=== PATIENT | male | born 1980 | race Caucasian/White ===

== ENCOUNTER 2017-04-22 16:57 | Emergency (ER) | payer BC, OTHER ==
[2017-04-22 17:02] VITALS: BP 168/102; PULSE 78; RESP 18; TEMP 98.8; O2SAT 96
--- NOTE | 2017-04-22 17:25 | EDPHY ---
H & P Stated Complaint: Sore throat and R ear pain since yesterday Time Seen by Provider: 04/22/17 17:03 HPI/ROS: Chief complaint: Cold symptoms History of present illness: This is a 36-year-old male who presents to the emergency department for evaluation of cold symptoms. Patient reports the onset of symptoms over the last 1-2 days. He describes initially developing generalized malaise and body aches. He has subsequently developed a sore throat and right ear pain. Denies other associated signs or symptoms including no fevers, no cough, no trouble breathing, no rash. - Personal History Current Tetanus Diphtheria and Acellular Pertussis (TDAP): Yes Tetanus Vaccine Date: 2008 - Medical/Surgical History Hx Asthma: No Hx Chronic Respiratory Disease: No Hx Diabetes: No Hx Cardiac Disease: No Hx Renal Disease: No Hx Cirrhosis: No Hx Alcoholism: Yes Hx HIV/AIDS: No Hx Splenectomy or Spleen Trauma: No Other PMH: neck surgery. anxiety - Social History Smoking Status: Current every day smoker - Physical Exam Exam: General Appearance: Alert and no distress. Eyes: Pupils equal and round no injection. ENT: Tympanic membranes, external auditory canals, external easr and surrounding soft tissue including over the mastoids are unremarkable. Nasopharynx is not injected. There is no rhinorrhea. Oropharynx is mildly injected. There is no edema. There is no exudate. There is no asymmetry. The uvula is midline. No elevation of the tongue. There is no hoarseness, no drooling, no trismus, no stridor. Respiratory: Chest is nontender, lungs are clear to auscultation. Cardiac: regular rate and rhythm. Musculoskeletal: Neck is supple and nontender. Extremities have full range of motion and are nontender. Skin: No rashes or lesions. Neurological: Alert and oriented x4. Ambulating without difficulty. No meningismus. Constitutional: Initial Vital Signs Temperature (C) 37.1 C 04/22/17 17:00 Heart Rate 78 04/22/17 17:00 Respiratory Rate 18 04/22/17 17:00 Blood Pressure 168/102 H 04/22/17 17:00 O2 Sat (%) 96 04/22/17 17:00 O2 Delivery Mode Room Air Allergies/Adverse Reactions: amoxicillin [From Augmentin] Allergy (Mild, Verified 04/22/17 16:59) GI upset clavulanic acid [From Augmentin] Allergy (Mild, Verified 04/22/17 16:59) GI upset apple Allergy (Verified 04/22/17 16:57) tree nut [Nuts] Allergy (Verified 04/22/17 16:57) Home Medications: Medication Instructions Recorded Baclofen [Baclofen 20 mg (*)] 20 mg PO 04/22/17 DULoxetine [Cymbalta 30 MG (*)] 30 mg PO 04/22/17 GABAPENTIN 400 mg PO 04/22/17 Lisdexamfetamine Dimesylate 60 mg PO DAILY 04/22/17 [Vyvanse] Prazosin HCl [Minipress 1mg (*)] 1 mg PO HS 04/22/17 QUEtiapine FUMARATE [Seroquel 100 100 mg PO DAILY 04/22/17 mg (*)] Medical Decision Making ED Course/Re-evaluation: Patient seen under the supervision of my secondary supervising physician Dr. Colby Hayes. Patient presents to the emergency department for cold symptoms. He is nontoxic. Vital signs are stable. Strep swab is negative. Likely a viral syndrome. Patient will be discharged home. Home care is discussed. Return precautions are given. Patient voiced understanding and agreement with plan. Differential Diagnosis: Included but not limited to pharyngitis, strep pharyngitis, tonsillitis, UR infection, viral syndrome - Data Points Laboratory Results: 04/22/17 04/22/17 Unknown 17:14 Group A Strep Screen NEGATIVE (NEGATIVE) Group A Strep DNA Pending Departure - Departure Disposition: Home, Routine, Self-Care Clinical Impression: Acute pharyngitis Qualifiers: Pharyngitis/tonsillitis etiology: unspecified etiology Qualified Code(s): J02.9 - Acute pharyngitis, unspecified Condition: Good Instructions: Pharyngitis (ED) Additional Instructions: Follow-up with your primary care doctor for recheck Use [id number] cold medications as needed If symptoms worsen or new symptoms develop return to the emergency room for recheck Referrals: NONE *PRIMARY CARE P,. [Primary Care Provider] - As per Instructions [facility],. [Clinic] - As per Instructions
== END 2017-04-22 17:34 | disposition home or self-care (01) ==
DX: J02.9 Acute pharyngitis, unspecified (principal); F17.200 Nicotine dependence, unspecified, uncomplicated

== ENCOUNTER 2017-07-12 15:48 | Emergency (ER) | payer OTHER ==
[2017-07-12 16:09] VITALS: BP 161/95; PULSE 88; RESP 17; TEMP 99; O2SAT 98
--- NOTE | 2017-07-12 16:26 | EDPHY ---
H & P Stated Complaint: L EAR PAIN/URI SYMPTOMS Time Seen by Provider: 07/12/17 16:11 - Personal History Current Tetanus/Diphtheria Vaccine: Yes Tetanus Vaccine Date: 2008 - Medical/Surgical History Hx Asthma: No Hx Chronic Respiratory Disease: No Hx Diabetes: No Hx Cardiac Disease: No Hx Renal Disease: No Hx Cirrhosis: No Hx Alcoholism: Yes Hx HIV/AIDS: No Hx Splenectomy or Spleen Trauma: No Other PMH: neck surgery. anxiety - Social History Smoking Status: Current every day smoker Constitutional: Initial Vital Signs Temperature (C) 37.2 C 07/12/17 16:07 Heart Rate 88 07/12/17 16:07 Respiratory Rate 17 07/12/17 16:07 Blood Pressure 161/95 H 07/12/17 16:07 O2 Sat (%) 98 07/12/17 16:07 O2 Delivery Mode Room Air Allergies/Adverse Reactions: amoxicillin [From Augmentin] Allergy (Mild, Verified 07/12/17 16:06) GI upset clavulanic acid [From Augmentin] Allergy (Mild, Verified 07/12/17 16:06) GI upset apple Allergy (Verified 07/12/17 16:06) tree nut [Nuts] Allergy (Verified 07/12/17 16:06) Home Medications: Medication Instructions Recorded Baclofen [Baclofen 20 mg (*)] 20 mg PO 04/22/17 DULoxetine [Cymbalta 30 MG (*)] 30 mg PO 04/22/17 GABAPENTIN 400 mg PO 04/22/17 Lisdexamfetamine Dimesylate 60 mg PO DAILY 04/22/17 [Vyvanse] Prazosin HCl [Minipress 1mg (*)] 1 mg PO HS 04/22/17 QUEtiapine FUMARATE [Seroquel 100 100 mg PO DAILY 04/22/17 mg (*)] Albuterol [Proventil Inhaler] 1 - 2 puffs IH Q4 #1 mdi 07/12/17 Cephalexin [Keflex (RX)] 500 mg PO TID #30 cap 07/12/17 predniSONE 40 mg PO DAILY #10 tab 07/12/17 Medical Decision Making ED Course/Re-evaluation: CHIEF COMPLAINT: Sore throat, clot left ear, cough HISTORY OF PRESENT ILLNESS: 36-year-old gentleman with a 3 to four-day history of worsening sore throat, productive cough of brownish sputum, and a clogged left ear. Patient denies any significant fevers or chills. Patient states that someone looked in his throat and said it was red. REVIEW OF SYSTEMS: A 10 point review of systems was performed and is negative with the exception of the elements mentioned in the history of present illness. PHYSICAL EXAM: HR, BP, O2 Sat, RR. Temp noted General Appearance: Alert, well hydrated, appropriate, and non-toxic appearing. Head: Atraumatic without scalp tenderness or obvious injury Eyes: Pupils equal, round, reactive to light and accommodation, EOMI, no trauma , no injection. Ears: Clear bilaterally, no perforation, normal landmarks. Questionably some bulging of tympanic membrane on the left but no erythema Nose: Atraumatic, no rhinorrhea, clear. Turbinates are somewhat erythematous Throat: Significant erythema bilaterally with a little bit of tonsillar exudate on the right but no abscess uvula midline Neck: Supple, 2+ carotid upstroke, nontender, no lymphadenopathy. Respiratory: No retractions, no distress, no wheezes, and no accessory muscle use. Some coarse rhonchi in all acevedo Cardiovascular: Regular rate and rhythm, no murmurs, rubs, or gallops. Bilateral carotid, radial, dorsalis pedis, and posterior tibial pulses intact. Good capillary refill all extremities. Gastrointestinal: Abdomen is soft, nontender, non-distended, no masses, no rebound, no guarding, no peritoneal signs. Musculoskeletal: Normal active ROM of all extremities, atraumatic. Neurological: Alert, appropriate, and interactive. The patient has normal DTRs and non-focal cranial nerves, motor, sensory, and cerebellar exam. Skin: No rashes, good turgor, no nodules on palpation. Past medical history: Noncontributory Past surgical history: Noncontributory Family history: Noncontributory Social history: Single, employed, does not abuse tobacco drugs or alcohol DIFFERENTIAL DIAGNOSIS: The differential diagnosis for the patient's sore throat and cough included but was not limited to pneumonia, pharyngitis, viral syndrome, meningitis, and sepsis. MEDICAL DECISION MAKING: This patient does not have any significant systemic illness. He has a very erythematous throat with some exudate and no real CT are all type symptoms. I have given this patient Keflex 500 mg three times daily for 10 days also giving him some prednisone for the 1st couple of days to decreases throat swelling. I am also giving him Proventil inhaler. He is going to continue on Flonase. He will follow up with his PCP or return here if worse Departure - Departure Disposition: Home, Routine, Self-Care Clinical Impression: Acute upper respiratory infection Acute pharyngitis Qualifiers: Pharyngitis/tonsillitis etiology: unspecified etiology Qualified Code(s): J02.9 - Acute pharyngitis, unspecified Condition: Good Instructions: Pharyngitis (ED) Referrals: NONE *PRIMARY CARE P,. [Primary Care Provider] - As per Instructions Prescriptions: Albuterol [Proventil Inhaler] 1 - 2 puffs IH Q4 #1 mdi Cephalexin [Keflex (RX)] 500 mg PO TID #30 cap predniSONE 40 mg PO DAILY #10 tab
== END 2017-07-12 16:32 | disposition home or self-care (01) ==
DX: J02.9 Acute pharyngitis, unspecified (principal); J06.9 Acute upper respiratory infection, unspecified; F17.200 Nicotine dependence, unspecified, uncomplicated

== ENCOUNTER 2017-08-13 09:10 | Emergency (ER) | payer OTHER ==
[2017-08-13 09:16] VITALS: BP 156/86; PULSE 90; RESP 18; TEMP 98.1; O2SAT 96
--- NOTE | 2017-08-13 09:38 | EDPHY ---
H & P Time Seen by Provider: 08/13/17 09:19 HPI/ROS: CHIEF COMPLAINT: "My feet and hands are cracked " HISTORY OF PRESENT ILLNESS: 36-year-old immunocompetent male complaining of dry hands, feet, cracking of tissue. He works with his hands regularly, washing his hands frequently because he has been cleaning and has been applying copious amounts of liquid bandage to hands as well. He notes that his feet bilaterally are swollen. Pain-free. Lymphangitic streaking. No other rash. No intraoral lesions. No genitalia lesions. No fever or chills. No nausea or vomiting. No abdominal pain. PRIMARY CARE PROVIDER: No primary care provider REVIEW OF SYSTEMS: A ten point review of systems was performed and is negative with the exception of the items mentioned in the HPI PAST MEDICAL & SURGICAL HISTORY: No pertinent medical or surgical history SOCIAL HISTORY: daily cigarette smoker PHYSICAL EXAM (Prior to examination, patient consented to physical exam, hands were washed and my usual and customary physical exam procedures followed) 1) GENERAL: Well-developed, well-nourished, alert and oriented. Appears distress 2) HEAD: Normocephalic, atraumatic 3) HEENT: Pupils equal, round, reactive to light bilaterally. Sclera anicteric. Nasopharynx, oropharynx, clear, no lesions. No tonsillar enlargement or exudate Ears bilaterally with normal tympanic membranes. 4) NECK: Full range of motion, no meningeal signs. 5) LUNGS: Clear auscultation bilaterally, no wheezes, no rhonchi, no retractions. 6) HEART: Regular rate and rhythm, no murmur, no heave, no gallop. 7) ABDOMEN: No guarding, no rebound, no focal tenderness, 8) MUSCULOSKELETAL: Moving all extremities, no focal areas of tenderness, no obvious trauma. No peripheral edema or discoloration. 9) BACK: No CVA tenderness, no midline vertebral tenderness, no fluctuance, no step-off, no obvious trauma, no visual or palpable abnormality. 10) SKIN: The patient's bilateral hands and feet plantar and palmar aspects he has dry skin consistent with cirrhotic eczema with cracking of the tissue. No erythema or signs of cellulitis or infection. No crepitus. No vesicles. No tenderness. Negative kanavel to the hand. No lymphangitic streaking. 11) Psychiatric: Patient is oriented X 3, there is no agitation. DIFFERENTIAL DIAGNOSIS: [ in no particular order including but limited to dyshidrotic eczema, contact dermatitis, cellulitis Smoking Status: Current every day smoker Constitutional: Initial Vital Signs Temperature (C) 36.7 C 08/13/17 09:12 Heart Rate 90 08/13/17 09:12 Respiratory Rate 18 08/13/17 09:12 Blood Pressure 156/86 H 08/13/17 09:12 O2 Sat (%) 96 08/13/17 09:12 O2 Delivery Mode Room Air Allergies/Adverse Reactions: amoxicillin [From Augmentin] Allergy (Mild, Verified 08/13/17 09:12) GI upset clavulanic acid [From Augmentin] Allergy (Mild, Verified 08/13/17 09:12) GI upset apple Allergy (Verified 08/13/17 09:12) tree nut [Nuts] Allergy (Verified 08/13/17 09:12) Home Medications: Medication Instructions Recorded Baclofen [Baclofen 20 mg (*)] 20 mg PO 04/22/17 DULoxetine [Cymbalta 30 MG (*)] 30 mg PO 04/22/17 GABAPENTIN 400 mg PO 04/22/17 Lisdexamfetamine Dimesylate 60 mg PO DAILY 04/22/17 [Vyvanse] Prazosin HCl [Minipress 1mg (*)] 1 mg PO HS 04/22/17 MDM/Departure - MDM ED Course/Re-evaluation: This patient has no evidence of cellulitis or infectious etiology. We discussed more than likely dyshidrotic eczema combined with irritation from copious amounts of liquid bandage which he has been applying to his hands and his feet. I recommend he discontinue liquid bandage and use thick moisturizer such as Eucerin, sleep with cotton socks and gloves in place to increased moisture. Also recommend he elevate the feet. Doubt DVT. He feels comfortable with this plan.Care of patient under supervision of secondary supervising physician Dr Rocha . - Depart Disposition: Home, Routine, Self-Care Clinical Impression: Dyshidrotic eczema Condition: Good Instructions: Lanolin (On the skin) Additional Instructions: Apply a thick moisturizer such as Eucerin to your hands and feet, sleep with cotton gloves and socks on. Return to the ER if you develop pain or any other symptoms that concern you Referrals: Tiburcio Slater MD [Medical Doctor] - As per Instructions
== END 2017-08-13 09:48 | disposition home or self-care (01) ==
DX: L30.1 Dyshidrosis [pompholyx] (principal); F17.210 Nicotine dependence, cigarettes, uncomplicated

== ENCOUNTER 2017-10-02 01:51 | Emergency (ER) | payer BC, OTHER ==
[2017-10-02] MEDS ORDERED: NS 1,000 ML IV ONE (01:59)
[2017-10-02 02:02] VITALS: RESP 20; O2SAT 95
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
--- NOTE | 2017-10-02 02:05 | CPEKG ---
Heart Rate: 80 RR Interval: 750 P-R Interval: 152 QRSD Interval: 82 QT Interval: 360 QTC Interval: 416 P [place]: 70 QRS [place]: 69 T Wave [place]: 68 EKG Severity - NORMAL ECG - EKG Impression: SINUS RHYTHM Electronically Signed By: Dl Leos 08-Oct-2017 09:39:04
[2017-10-02 02:22] VITALS: TEMP 97.7
[2017-10-02 02:22] LABS: PLATELET COUNT 307 10^3/uL (150-400)
[2017-10-02 03:02] LABS: CREATINE KINASE 370 IU/L (0-224)
[2017-10-02 04:22] VITALS: BP 150/90; PULSE 85
== END 2017-10-02 04:21 | disposition home or self-care (01) ==
LOC: EDUNIT#
DX: R41.0 Disorientation, unspecified (principal); F17.200 Nicotine dependence, unspecified, uncomplicated
CPT/HCPCS: 80305; G0480

== ENCOUNTER 2018-02-24 16:05 | Emergency (ER) | payer OTHER ==
--- NOTE | 2018-02-24 17:14 | CPEKG ---
Heart Rate: 67 RR Interval: 896 P-R Interval: 156 QRSD Interval: 80 QT Interval: 372 QTC Interval: 393 P [place]: 72 QRS [place]: 70 T Wave [place]: 68 EKG Severity - NORMAL ECG - EKG Impression: SINUS RHYTHM Electronically Signed By: Warren Contreras 24-Feb-2018 17:26:58
[2018-02-24] MEDS ORDERED: NS 1,000 ML IV ONE (17:16)
--- NOTE | 2018-02-24 17:23 | EDPHY ---
H & P Stated Complaint: fatigue, losing weight Time Seen by Provider: 02/24/18 17:14 HPI/ROS: CHIEF COMPLAINT: Fatigue, weight loss HISTORY OF PRESENT ILLNESS: The patient is a 37-year-old man with a history of alcohol, marijuana , benzodiazepine and meth abuse. He comes to the emergency department complaining that he has had weight loss unintentionally over the last 2 months he as well as fatigue and for the last week he has felt increasingly shaky and describes a fuzzy sensation in his hands. He states that it feels like his hands are covered in cotton. He also states that he is feeling weak and lightheaded. He denies fainting or syncope but states that today his knees buckled and he was able to catch himself. He has an appointment with his primary Dr. Villasenor on but did not think he could make it until then. He denies fevers. He is a smoker. He denies recent drug abuse. No shortness of breath. No chest pain. No abdominal pain. No nausea vomiting or diarrhea. No headache. No focal weakness. No sore throat or fever. REVIEW OF SYSTEMS: Constitutional: See HPI denies: chills, fever, recent illness, recent injury EENTM: denies: blurred vision, double vision, nose congestion Respiratory: denies: cough, shortness of breath Cardiac: denies: chest pain, irregular heart rate, lightheadedness, palpitations Gastrointestinal/Abdominal: denies: abdominal pain, diarrhea, nausea, vomiting, blood streaked stools Genitourinary: denies: dysuria, frequency, hematuria, pain Musculoskeletal: denies: joint pain, muscle pain Skin: denies: lesions, rash, jaundice, bruising Neurological: denies: headache, numbness, paresthesia, tingling, dizziness, weakness Hematologic/Lymphatic: denies: blood clots, easy bleeding, easy bruising Immunologic/allergic: denies: HIV/AIDS, transplant EXAM: GENERAL: Well-appearing, thin and in no acute distress. HEAD: Atraumatic, normocephalic. EYES: Pupils equal round and reactive to light, extraocular movements intact, sclera anicteric, conjunctiva are normal. ENT: TMs normal, nares patent, oropharynx clear without exudates. Moist mucous membranes. NECK: Normal range of motion, supple without lymphadenopathy or JVD. LUNGS: Breath sounds clear to auscultation bilaterally and equal. No wheezes rales or rhonchi. HEART: Regular rate and rhythm without murmurs, rubs or gallops. ABDOMEN: Soft, nontender, normoactive bowel sounds. No guarding, no rebound. No masses appreciated. BACK: No CVA tenderness, no spinal tenderness, step-offs or deformities EXTREMITIES: Normal range of motion, no pitting or edema. No clubbing or cyanosis. NEUROLOGICAL: Cranial nerves II through XII grossly intact. Normal speech, normal gait. 5/5 strength, normal movement in all extremities, normal sensation PSYCH: Normal mood, normal affect. SKIN: Warm, dry, normal turgor, no visible rashes or lesions. Source: Patient Exam Limitations: No limitations - Personal History Current Tetanus/Diphtheria Vaccine: No Current Tetanus Diphtheria and Acellular Pertussis (TDAP): No Tetanus Vaccine Date: 2008 - Medical/Surgical History Hx Asthma: No Hx Chronic Respiratory Disease: No Hx Diabetes: No Hx Cardiac Disease: No Hx Renal Disease: No Hx Cirrhosis: No Hx Alcoholism: Yes Hx HIV/AIDS: No Hx Splenectomy or Spleen Trauma: No Other PMH: neck surgery. anxiety - Family History Significant Family History: No pertinent family hx - Social History Smoking Status: Current every day smoker Alcohol Use: Sober Drug Use: None Constitutional: Initial Vital Signs Temperature (C) 37.0 C 02/24/18 16:17 Heart Rate 86 02/24/18 16:17 Respiratory Rate 18 02/24/18 16:17 Blood Pressure 137/89 H 02/24/18 16:17 O2 Sat (%) 97 02/24/18 16:17 O2 Delivery Mode Room Air Allergies/Adverse Reactions: amoxicillin [From Augmentin] Allergy (Mild, Verified 10/02/17 02:21) GI upset clavulanic acid [From Augmentin] Allergy (Mild, Verified 10/02/17 02:21) GI upset apple Allergy (Verified 10/02/17 02:21) tree nut [Nuts] Allergy (Verified 10/02/17 02:21) Home Medications: Medication Instructions Recorded Baclofen [Baclofen 20 mg (*)] 20 mg PO 04/22/17 DULoxetine [Cymbalta 30 MG (*)] 30 mg PO 04/22/17 GABAPENTIN 400 mg PO 04/22/17 Lisdexamfetamine Dimesylate 60 mg PO DAILY 04/22/17 [Vyvanse] Prazosin HCl [Minipress 1mg (*)] 1 mg PO HS 04/22/17 VYVANSE 02/24/18 Medical Decision Making - Diagnostics EKG Interpretation: An EKG obtained and was read and documented in trace view. Please see trace view for full reading and report. Sinus rhythm, no acute ischemic changes Imaging Results: Imaging Impressions Chest X-Ray 02/24/18 17:21 Impression: No evidence for acute cardiopulmonary abnormality. Imaging: Discussed imaging studies w/ electrotyper helper Radiologist ED Course/Re-evaluation: We discussed the test results. The patient feels reassured. He is walking here in the emergency department. Nothing acutely abnormal or emergent today. He will follow up with his primary this week. We discussed indications for returning. Differential Diagnosis: Partial list of the Differential diagnosis considered include but were not limited to; anxiety, depression, electrolyte abnormality, cancer and although unlikely based on the history and physical exam, I also considered head injury, infection. I discussed these differential diagnoses and the plan with the patient as well as the usual and expected course. The patient understands that the diagnosis is provisional and that in medicine we are not always correct and that further workup is often warranted. Usual and customary warnings were given. All of the patient's questions were answered. The patient was instructed to return to the emergency department should the symptoms at all worsen or return, otherwise to followup with the physician as we discussed. - Data Points Laboratory Results: Laboratory Results 02/24/18 17:15 02/24/18 17:15 02/24/18 02/24/18 02/24/18 18:30 17:15 17:15 WBC RBC Hgb Hct MCV MCH MCHC RDW Plt Count MPV Neut % (Auto) Lymph % (Auto) [place] % (Auto) Eos % (Auto) Baso % (Auto) Nucleat RBC Rel Count Absolute Neuts (auto) Absolute Lymphs (auto) Absolute Monos (auto) Absolute Eos (auto) Absolute Basos (auto) Absolute Nucleated RBC Immature Gran % Immature Gran # Sodium 141 mEq/L mEq/L (135-145) Potassium 3.9 mEq/L mEq/L (3.3-5.0) Chloride 104 mEq/L mEq/L (97-110) Carbon Dioxide 25 mEq/l mEq/l (22-31) Anion Gap 12 mEq/L mEq/L (8-16) BUN 10 mg/dL mg/dL (7-23) Creatinine 0.7 mg/dL mg/dL (0.7-1.3) Estimated GFR > 60 Glucose 83 mg/dL mg/dL (70-100) Calcium 9.4 mg/dL mg/dL (8.5-10.4) Total Bilirubin 0.5 mg/dL mg/dL (0.1-1.4) Conjugated Bilirubin 0.3 mg/dL mg/dL (0.0-0.5) Unconjugated Bilirubin 0.2 mg/dL mg/dL (0.0-1.1) AST 21 IU/L IU/L (17-59) ALT 24 IU/L IU/L (21-72) Alkaline Phosphatase 71 IU/L IU/L (38-126) Total Protein 7.3 g/dL g/dL (6.3-8.2) Albumin 4.4 g/dL g/dL (3.5-5.0) TSH 1.160 uIU/mL uIU/mL (0.465-4.680) Urine Color PALE YELLOW Urine Appearance CLEAR Urine pH 6.0 (5.0-7.5) Ur Specific [place] 1.008 (1.002-1.030) Urine Protein NEGATIVE (NEGATIVE) Urine Ketones NEGATIVE (NEGATIVE) Urine Blood NEGATIVE (NEGATIVE) Urine Nitrate NEGATIVE (NEGATIVE) Urine Bilirubin NEGATIVE (NEGATIVE) Urine Urobilinogen NEGATIVE EU EU (0.2-1.0) Ur Leukocyte Esterase NEGATIVE (NEGATIVE) Urine RBC NONE SEEN /hpf /hpf (0-3) Urine WBC 0-1 /hpf /hpf (0-3) Ur Epithelial Cells NONE SEEN /lpf /lpf (NONE-1+) Urine Mucus TRACE /lpf /lpf (NONE-1+) Urine Glucose NEGATIVE (NEGATIVE) Urine Opiates Screen NEGATIVE (NEGATIVE) Urine Barbiturates NEGATIVE (NEGATIVE) Ur Phencyclidine Scrn NEGATIVE (NEGATIVE) Ur Amphetamine Screen NON-NEGATIVE H (NEGATIVE) U Benzodiazepines Scrn NON-NEGATIVE H (NEGATIVE) Urine Cocaine Screen NEGATIVE (NEGATIVE) U Marijuana (THC) Screen NEGATIVE (NEGATIVE) Ethyl Alcohol < 10 mg/dL mg/dL (0-10) 06/16/18 17:15 WBC 9.85 10^3/uL H 10^3/uL (3.80-9.50) RBC 4.34 10^6/uL L 10^6/uL (4.40-6.38) Hgb 13.8 g/dL g/dL (13.7-17.5) Hct 40.3 % % (40.0-51.0) MCV 92.9 fL fL (81.5-99.8) MCH 31.8 pg pg (27.9-34.1) MCHC 34.2 g/dL g/dL (32.4-36.7) RDW 13.3 % % (11.5-15.2) Plt Count 333 10^3/uL 10^3/uL (150-400) MPV 9.9 fL fL (8.7-11.7) Neut % (Auto) 61.9 % % (39.3-74.2) Lymph % (Auto) 29.1 % % (15.0-45.0) [place] % (Auto) 6.7 % % (4.5-13.0) Eos % (Auto) 1.5 % % (0.6-7.6) Baso % (Auto) 0.5 % % (0.3-1.7) Nucleat RBC Rel Count 0.0 % % (0.0-0.2) Absolute Neuts (auto) 6.09 10^3/uL 10^3/uL (1.70-6.50) Absolute Lymphs (auto) 2.87 10^3/uL 10^3/uL (1.00-3.00) Absolute Monos (auto) 0.66 10^3/uL 10^3/uL (0.30-0.80) Absolute Eos (auto) 0.15 10^3/uL 10^3/uL (0.03-0.40) Absolute Basos (auto) 0.05 10^3/uL 10^3/uL (0.02-0.10) Absolute Nucleated RBC 0.00 10^3/uL 10^3/uL (0-0.01) Immature Gran % 0.3 % % (0.0-1.1) Immature Gran # 0.03 10^3/uL 10^3/uL (0.00-0.10) Sodium Potassium Chloride Carbon Dioxide Anion Gap BUN Creatinine Estimated GFR Glucose Calcium Total Bilirubin Conjugated Bilirubin Unconjugated Bilirubin AST ALT Alkaline Phosphatase Total Protein Albumin TSH Urine Color Urine Appearance Urine pH Ur Specific [place] Urine Protein Urine Ketones Urine Blood Urine Nitrate Urine Bilirubin Urine Urobilinogen Ur Leukocyte Esterase Urine RBC Urine WBC Ur Epithelial Cells Urine Mucus Urine Glucose Urine Opiates Screen Urine Barbiturates Ur Phencyclidine Scrn Ur Amphetamine Screen U Benzodiazepines Scrn Urine Cocaine Screen U Marijuana (THC) Screen Ethyl Alcohol Medications Given: Discontinued Medications Sodium Chloride (Ns) 1,000 mls @ 0 mls/hr IV EDNOW ONE; Wide Open PRN Reason: Protocol Stop: 02/24/18 17:17 Last Admin: 02/24/18 17:27 Dose: 1,000 mls Departure - Departure Disposition: Home, Routine, Self-Care Clinical Impression: Fatigue Qualifiers: Fatigue type: unspecified Qualified Code(s): R53.83 - Other fatigue Condition: Fair Instructions: Fatigue (ED) Referrals: Samson Villasenor MD [Primary Care Provider] - 2-3 days, if not improved
[2018-02-24 18:04] VITALS: BP 144/101
[2018-02-24 18:17] LABS: PLATELET COUNT 333 10^3/uL (150-400)
== END 2018-02-24 19:30 | disposition home or self-care (01) ==
DX: R53.83 Other fatigue (principal); E86.9 Volume depletion, unspecified; F17.200 Nicotine dependence, unspecified, uncomplicated
CPT/HCPCS: 80305; G0480